=== PATIENT | male | born 1955 | race Caucasian/White ===

== ENCOUNTER → 2016-04-27 | Outpatient (CLI) | payer BC ==
[~2016-04-27] MED LIST: ASCA500 PO; HYDR-5688 PO; LISI-461 PO; MULT-506 PO
[2016-04-27 11:07] LABS: CHOLESTEROL/HDL RATIO 4.3
== END | disposition home or self-care (01) ==
LOC: C.LABBC 08:36
PROVIDERS: ATTEND Family Medicine
DX: E78.00 Pure hypercholesterolemia, unspecified (principal)